=== PATIENT | female | born 1935 | race Asian ===

== ENCOUNTER 2021-06-28 00:55 | Emergency (ER) | payer MEDICAID ==
[~2021-06-28] VITALS: Ht 152.4 cm; Wt 65.8 kg
[2021-06-28 00:55] VITALS: BP_SYST 137
[2021-06-28] MEDS ORDERED: NOR10 PO (02:03)
[2021-06-28] MEDS ORDERED: ALLO100T PO (02:03)
[2021-06-28] MEDS ORDERED: FOLI-43 PO (02:03)
[2021-06-28] MEDS ORDERED: CARV6.2554 PO (02:03)
[2021-06-28] MEDS ORDERED: LIP20 PO (02:03)
[2021-06-28] MEDS ORDERED: NEPH PO (02:03)
[2021-06-28] MEDS ORDERED: INSNLG7030 SUBCUT ×2 (02:03)
[2021-06-28] MEDS ORDERED: ENAL20TA18 PO (02:03)
[2021-06-28 02:15] VITALS: BP_SYST 143
== END 2021-06-28 02:16 | disposition home or self-care (01) ==
LOC: SED 00:55
DX: T82.838A Hemorrhage due to vascular prosthetic devices, implants and grafts, initial encounter (principal); R06.00 Dyspnea, unspecified; I13.2 Hypertensive heart and chronic kidney disease with heart failure and with stage 5 chronic kidney disease, or end stage renal disease; E11.22 Type 2 diabetes mellitus with diabetic chronic kidney disease; N18.6 End stage renal disease; I50.9 Heart failure, unspecified; Z99.2 Dependence on renal dialysis; Z88.1 Allergy status to other antibiotic agents; Z79.899 Other long term (current) drug therapy
CPT/HCPCS: 71045; 99283